=== PATIENT | male | born 1930 ===

== ENCOUNTER 2018-10-12 08:00 | Outpatient (CLI) | payer OTHER ==
[~2018-10-12] VITALS: Ht 165.1 cm; Wt 24.9 kg
== END 2018-10-12 08:15 | disposition home or self-care (01) ==
LOC: OFIC 805 08:00
DX: H91.8X3 Other specified hearing loss, bilateral (principal); R42 Dizziness and giddiness

== ENCOUNTER 2018-10-27 08:57 | Outpatient (CLI) | payer OTHER | END 2018-10-27 09:09 | disposition home or self-care (01) | LOC: NUCLEAR 08:57 | DX: I11.9 Hypertensive heart disease without heart failure (principal); G12.21 Amyotrophic lateral sclerosis; G11.2 Late-onset cerebellar ataxia; I67.89 Other cerebrovascular disease ==